=== PATIENT | male | born 1945 | race Caucasian/White ===

== ENCOUNTER 2019-05-02 11:32 | Emergency (ER) | payer MEDICARE ==
[2019-05-02 12:09] LABS: INR 1.09 (0.82-1.09)
--- NOTE | 2019-05-02 12:27 | ED ---
Respiratory - HPI Summary HPI Summary: 74 y/o male presented to [facility] complaining of labored breathing present for the past 3 weeks. He reports that he went to [facility] this morning and was told to come here due to CXR findings with concern for pneumothorax. He was also found to be be hypoxic. NC O2 has improved sats. He denies any other symptoms including fever, chills, or CP. He states that he has not seen a provider for these symptoms yet as he has not followed up for any previous sicknesses in the last 40 years. He does not have any known PMHx. Nonsmoker. FHX of breast cancer in mother. - History of Current Complaint Chief Complaint: EDShortnessOfBreath Stated Complaint: SOB PER PT Time Seen by Provider: 05/02/19 11:43 Hx Obtained From: Patient, Family/Air Quality Consultant Timing: Constant Current Severity: None Pain Intensity: 0 Character: Dyspnea at Rest Aggravating Factor(s): Nothing Alleviating Factor(s): Oxygen Associated Signs and Symptoms: SOB, Dyspnea - Allergy/Home Medications Allergies/Adverse Reactions: Allergies Allergy/AdvReac Type Severity Reaction Status Date / Time No Known Allergies Allergy Verified 05/02/19 11:42 PMH/Surg Hx/FS Hx/Imm Hx Endocrine/Hematology History: Denies: Hx Diabetes Cardiovascular History: Denies: Hx Hypertension Respiratory History: Denies: Hx Chronic Obstructive Pulmonary Disease (COPD) - Surgical History Surgical History: Yes Surgery Procedure, Year, and Place: appendectomy Infectious Disease History: No Infectious Disease History: Denies: Traveled Outside the [place] in Last 30 Days - Family History Known Family History: Positive: Other - breast cancer mother - Social History Alcohol Use: Occasionally Hx Substance Use: No Substance Use Type: Reports: None Hx Tobacco Use: No Smoking Status (MU): Never Smoked Tobacco Review of Systems Negative: Fever, Chills Negative: Chest Pain Positive: Shortness Of Breath, Other - dyspnea All Other Systems Reviewed And Are Negative: Yes Physical Exam - Summary Physical Exam Summary: Constitutional: Elderly male, mild respiratory distress Skin: Warm, Dry HENT: Normocephalic; Atraumatic Eyes: Conjunctiva normal Neck: Musculoskeletal ROM normal neck. (-) JVD, (-) Stridor, (-) Nuchal rigidity Cardio: Rhythm regular, rate normal, Heart sounds normal; Intact distal pulses; Radial pulses are 2+ and symmetric. (-) Murmur Pulmonary/Chest wall: Decreased breath sounds on the left, tachypnea, (-) Wheezes, (-) Rales Abd: Soft, (-) tenderness, (-) Distension, (-) Guarding, (-) Rebound Musculoskeletal: (-) Edema Lymph: (-) Cervical adenopathy Neuro: Alert, Oriented x3 Psych: Mood and affect Normal Triage Information Reviewed: Yes Vital Signs On Initial Exam: Initial Vitals Temp Pulse Resp BP Pulse Ox 97.4 F 100 24 147/99 88 05/02/19 11:35 05/02/19 11:35 05/02/19 11:35 05/02/19 11:35 05/02/19 11:35 Vital Signs Reviewed: Yes Procedures - Sedation Patient Received Moderate/Deep Sedation with Procedure: No Diagnostics - Vital Signs Vital Signs Temp Pulse Resp BP Pulse Ox 05/02/19 11:35 97.4 F 100 24 147/99 88 - Laboratory Lab Results: Lab Results 05/02/19 05/02/19 Range/Units 11:56 11:56 INR (Anticoag Therapy) 1.09 (0.82-1.09) Sodium 127 L (135-145) mmol/L Potassium Pending Chloride 101 (101-111) mmol/L Carbon Dioxide 26 (22-32) mmol/L Anion Gap Pending BUN 23 (6-24) mg/dL Creatinine 1.53 H (0.67-1.17) mg/dL Est GFR ( Amer) 54.3 (>60) Est GFR (Non-Af Amer) 44.8 (>60) BUN/Creatinine Ratio 15.0 (8-20) Glucose 122 H (70-100) mg/dL Calcium 8.5 L (8.6-10.3) mg/dL Total Bilirubin 0.80 (0.2-1.0) mg/dL AST 78 H (13-39) U/L ALT 9 (7-52) U/L Alkaline Phosphatase 105 H (34-104) U/L Total Protein 6.6 (6.4-8.9) g/dL Albumin 4.4 (3.2-5.2) g/dL Globulin 2.2 (2-4) g/dL Albumin/Globulin Ratio 2.0 (1-3) Result Diagrams: 05/02/19 13:50 05/02/19 13:00 Lab Statement: Any lab studies that have been ordered have been reviewed, and results considered in the medical decision making process. - Radiology CXR Radiology Interpretation Completed By: Radiologist Summary of Radiographic Findings: IMPRESSION: OPACIFICATION OF THE LEFT HEMITHORAX CONSISTENT WITH LARGE PLEURAL EFFUSION IS. IDENTIFIED ON CT. NO PNEUMOTHORAX IS NOTED. This report was reviewed by the ED physician. - CT Chest CT CT Interpretation Completed By: Radiologist Summary of CT Findings: IMPRESSION: Large left pleural effusion with complete atelectasis of the left lung field. This report was reviewed by the ED physician. - EKG 1138 Cardiac Rate: NL - 96 bpm EKG Rhythm: Sinus Rhythm Summary of EKG Findings: An EKG at 1138 reveals normal sinus rhythm at 96bpm. Low voltage. This EKG was reviewed and interpreted by the ED physician. Re-Evaluation - Re-Evaluation First Eval Re-Evaluation Time: 13:00 Comment: Discussed lab results with concern for neoplastic processes indicating lymphoma/leukemia Second Eval Re-Evaluation Time: 14:40 Comment: Discussed plan for transfer following lab results, patient understands and agrees Disposition - Course Course Of Treatment: 74-year-old male with no reported past medical history presents with dyspnea. Physical exam w dyspneic elderly male. Decreased breath sounds on the left side. Chest x-ray shows complete whiteout of the lung. Concern for underlying neoplastic process versus infectious. Well check a CT chest. Patient placed on 3 L nasal cannula for comfort. - labs notable for significantly elevated white count over 600, blasts on differential. Concern for acute leukemia. she noted to be hyperkalemic to greater than 10 on labs, suspect secondary to leukocytosis. Patient does not have any evidence of hyperkalemia on his EKG and has relatively normal Cr. - D/ w oncology here who states patient needs to be transferred secondary to concern for need for induction for acute leukemia given blasts - Diagnoses Provider Diagnoses: CLL (chronic lymphocytic leukemia), Pleural effusion - Physician Notifications Discussed Care Of Patient With: Jorge Lopez - oncology Time Discussed With Above Provider: 12:50 Instructed by Provider To: Other - Patient's case was discussed with Dr. Lopez; he states that the patient can stay as long as he does not have blasts in differential. At 1440. Dr. Suh, hospitalist, aware of patient, but states patient will need to be transferred as Dr. Lopez's request. At 1454, Dr. Lopez is aware of patient's lab results and agrees with transfer. 1550, [facility] has no beds available, calling [place]. I spoke with Dr. Fishman from [place] ED, who accepts the patient for transfer. - Critical Care Time Critical Care Time: 30-74 min - Upon my evaluation, this patient had a high probability of imminent or life-threatening deterioration due to acute leukemia which required my direct attention, intervention, and personal management. I have personally provided 30 minutes of critical care time exclusive of time spent on separately billable procedures. Time includes review of laboratory data , radiology results, discussion with consultants, and monitoring for potential decompensation. Interventions were performed as documented above. Discharge ED - Sign-Out/Discharge Documenting (check all that apply): Patient Departure - transfer to [place] - Discharge Plan Condition: Stable Disposition: TRANS HIGHER LVL OF CARE FAC Referrals: No Primary Care Phys,NOPCP [Primary Care Provider] - - Billing Disposition and Condition Condition: STABLE Disposition: Trans Higher Lvl of Care Fac - Attestation Statements Document Initiated by Kimberleyibe: Yes Documenting Scribe: Diane Loera Provider For Whom Kimberleyibe is Documenting (Include Credential): Dr. Izaiah Briones MD Scribe Attestation: IDiane, scribed for Dr. Izaiah Briones MD on 05/02/19 at 1718. Scribe Documentation Reviewed: Yes Provider Attestation: The documentation as recorded by the Diane michael accurately reflects the service I personally performed and the decisions made by me, Dr. Izaiah Briones MD Status of Scribe Document: Viewed
[2019-05-02 12:42] LABS: Hematocrit 42 % (42-52); Hemoglobin 13.6 g/dL (14.0-18.0); Mean Corpuscular HGB Conc 32 g/dL (31-36); Mean Corpuscular Hemoglobin 31 pg (27-31); Mean Corpuscular Volume 97 fL (80-94); Mean Platelet Volume 7.9 fL (7.4-10.4); Platelet Count 144 10^3/uL (150-450); Red Blood Count 4.33 10^6 /uL (4.18-5.48); Red Cell Distribution Width 18 % (10-15); White Blood Count 672.5 10^3/uL (3.5-10.8)
[2019-05-02 13:23] LABS: ALT 9 U/L (7-52); AST 87 U/L (13-39); Albumin 4.3 g/dL (3.2-5.2); Alkaline Phosphatase 100 U/L (34-104); Blood Urea Nitrogen 25 mg/dL (6-24); CO2 Carbon Dioxide 24 mmol/L (22-32); Chloride 102 mmol/L (101-111); EGFR African American 56.8 (>60); Globulin 2.1 g/dL (2-4); Glucose 121 mg/dL (70-100); Sodium 123 mmol/L (135-145); Total Protein 6.4 g/dL (6.4-8.9)
[2019-05-02 13:54] LABS: Potassium > 10.0 mmol/L (3.5-5.0)
[2019-05-02 14:26] LABS: Hematocrit 45 % (42-52); Hemoglobin 14.8 g/dL (14.0-18.0); Mean Corpuscular HGB Conc 33 g/dL (31-36); Mean Corpuscular Hemoglobin 32 pg (27-31); Mean Corpuscular Volume 97 fL (80-94); Mean Platelet Volume 7.7 fL (7.4-10.4); Platelet Count 155 10^3/uL (150-450); Red Blood Count 4.67 10^6 /uL (4.18-5.48); Red Cell Distribution Width 18 % (10-15); White Blood Count 730.9 10^3/uL (3.5-10.8)
[2019-05-02 17:48] VITALS: BP 131/89
[2019-05-03 14:38] LABS: Hepatitis C Antibody Negative (Negative)
== END 2019-05-02 18:10 | disposition short-term general hospital (02) ==
LOC: ED 11:32
DX: C91.10 Chronic lymphocytic leukemia of B-cell type not having achieved remission (principal); J90 Pleural effusion, not elsewhere classified; J98.11 Atelectasis; Z90.89 Acquired absence of other organs
CPT/HCPCS: 36415; 71045; 71250; 80053; 85025; 85027; 85060; 85610; 86803; 93005; 99285